=== PATIENT | male | born 1930 | race Caucasian/White ===

== ENCOUNTER 2017-05-06 02:39 | Inpatient (IN) | payer OTHER, MEDICARE ==
[2017-05-06] VITALS (7 sets, daily range): BP systolic 125–174; BP diastolic 62–88
[~2017-05-06] VITALS: Ht 167.6 cm; Wt 76.3 kg
[2017-05-06 03:13] LABS: EOSINOPHIL (%) 0.4 % (0-5); EOSINOPHIL COUNT 0.1 K/uL (0-0.3); HEMATOCRIT 33.7 % (38.0-50.0); IMMATURE GRANULOCYTE (%) 0.3 % (0.0-0.7); INSTRUMENT ABS NEUTROPHIL CT 11.3 K/uL; LYMPHOCYTE COUNT 1.8 K/uL (1.0-2.8); MCH 24.7 PG (29.0-34.0); MCHC 31.8 G/DL (30.0-36.0); MCV 77.6 FL (86-99); MEAN PLAT.VOLUME 11.5 uM^3 (9.0-12.4); MONOCYTE (%) 6.9 % (3-12); NEUTROPHIL (%) 79.7 % (45-76); NEUTROPHIL COUNT 11.3 K/uL (1.8-6.4); PLATELET COUNT 175 K/uL (156-360); RBC DIS.WIDTH-CV 17.4 % (11.8-14.6); RBC DIS.WIDTH-SD 49.3 % (39-53); RED BLOOD COUNT 4.34 M/uL (4.00-5.50); WHITE BLOOD COUNT 14.1 K/uL (4.1-10.2)
[2017-05-06 03:19] LABS: INTER. NORMALIZED RATIO 2.6; PROTHROMBIN TIME 29.2 SEC (10.2-12.9)
[2017-05-06 03:21] LABS: PTT 43.5 SEC (25-37)
[2017-05-06 03:22] LABS: CHLORIDE 96 mEq/L (99-109); POTASSIUM 3.8 mEq/L (3.7-5.4); SODIUM 134 mEq/L (136-147)
[2017-05-06 03:23] LABS: GLUCOSE 70 mg/dL (70-99)
[2017-05-06 03:25] LABS: ANION GAP 12 MEQ/L (2-14)
[2017-05-06 03:28] LABS: UREA NITROGEN (BUN) 20 mg/dL (9-23)
[2017-05-06 03:30] LABS: GFR ESTIMATE (CALCULATED) > 59 mL/min/
[2017-05-06 03:33] LABS: TROP-I INTERPRETATION NEGATIVE; TROPONIN-I 0.03 ng/mL (0.0-0.30)
[2017-05-06 03:52] LABS: ADD MIUA? YES; BILIRUBIN NEGATIVE; BLOOD SMALL; COLOR AMBER ((YELLOW)); GLUCOSE (STRIP) NEGATIVE; KETONES NEGATIVE; LEUKOCYTES MODERATE; NITRITE NEGATIVE; PROTEIN (STRIP) >=500; SPECIFIC GRAVITY 1.023 (1.000-1.030); UROBILINOGEN 0.2 MG/DL (0.2-1.0)
[2017-05-06 04:09] LABS: RED BLOOD CELLS 40-50 /HPF (0-5); WHITE BLOOD CELLS 40-50 /HPF (0-5)
[2017-05-06 04:10] LABS: BACTERIA 4+ /HPF; CRYSTALS PRESENT; EPITHELIAL CELLS 1+ /HPF; MUCUS RARE /LPF; UCUL ADDED? YES
[2017-05-06 04:13] LABS: BUDDING YEAST 2+; CALCIUM OXALATE CRYSTALS 1+ /HPF; URIC ACID CRYSTALS 2+ /HPF
[2017-05-06 08:47] LABS: POINT-OF-CARE METER ID UU14174225
[2017-05-06 12:21] LABS: POINT-OF-CARE METER ID UU14188625
[2017-05-06] MEDS ORDERED: COUMADIN6 MG PO (15:39)
[2017-05-06] MEDS ORDERED: COUMADIN3 MG PO (15:40)
[2017-05-06] MEDS ORDERED: LANTUS 10100 UNITS/ SC (15:41)
[2017-05-06] MEDS ORDERED: LISINOPRIL2.5 MG PO (15:42)
[2017-05-06] MEDS ORDERED: DIGOXIN125 MCG PO (15:42)
[2017-05-06] MEDS ORDERED: CELEXA20 MG PO (15:43)
[2017-05-06] MEDS ORDERED: OMEPRAZOLE20 MG PO (15:43)
[2017-05-06] MEDS ORDERED: METFORMIN HCL500 MG PO (15:44)
[2017-05-06] MEDS ORDERED: COREG6.25 M1 PO (15:44)
[2017-05-06] MEDS ORDERED: PRAVASTATIN SOD40 MG PO (15:45)
[2017-05-06] MEDS ORDERED: FLOMAX0.4 MG PO (15:45)
[2017-05-06] MEDS ORDERED: CHEWABLE-VITE1 EACH PO (15:46)
[2017-05-06] MEDS ORDERED: VITAMIN B-12 51 EACH SL (15:46)
[2017-05-06] MEDS ORDERED: OXYCONTIN20 MG PO (15:47)
[2017-05-06] MEDS ORDERED: SENNA-DOCUSATE1 EAC1 PO (15:48)
[2017-05-06] MEDS ORDERED: CARBIDOPA/LEVO1 EACH PO (15:50)
[2017-05-06 17:36] LABS: POINT-OF-CARE METER ID UU14174225
[2017-05-06 21:24] LABS: POINT-OF-CARE METER ID UU14188625
[2017-05-07 04:23] VITALS: BP 145/72
[2017-05-07 07:07] LABS: INTER. NORMALIZED RATIO 2.9; PROTHROMBIN TIME 33.3 SEC (10.2-12.9)
[2017-05-07 07:09] LABS: HEMATOCRIT 30.1 % (38.0-50.0); MCH 24.5 PG (29.0-34.0); MCHC 31.6 G/DL (30.0-36.0); MCV 77.6 FL (86-99); MEAN PLAT.VOLUME 11.6 uM^3 (9.0-12.4); PLATELET COUNT 135 K/uL (156-360); RBC DIS.WIDTH-CV 17.2 % (11.8-14.6); RBC DIS.WIDTH-SD 48.9 % (39-53); RED BLOOD COUNT 3.88 M/uL (4.00-5.50); WHITE BLOOD COUNT 8.4 K/uL (4.1-10.2)
[2017-05-07 07:25] LABS: ANION GAP 9 MEQ/L (2-14); CHLORIDE 97 MEQ/L (99-109); GFR ESTIMATE (CALCULATED) > 59 mL/min/; POTASSIUM 3.5 MEQ/L (3.7-5.4); SAMPLE HEMOLYSIS CHECK 0; SAMPLE ICTERIC CHECK 0; SAMPLE LIPEMIA CHECK 0; SODIUM 132 MEQ/L (136-147); UREA NITROGEN (BUN) 12 mg/dL (9-23)
[2017-05-07 07:26] LABS: GLUCOSE 167 mg/dL (70-99)
[2017-05-07 08:24] VITALS: BP 150/81
[2017-05-07 10:13] LABS: POINT-OF-CARE METER ID UU13113717
[2017-05-07 12:13] LABS: POINT-OF-CARE METER ID UU14188625
[2017-05-07 13:32] VITALS: BP 138/78
[2017-05-07 16:46] LABS: POINT-OF-CARE METER ID UU14188625
[2017-05-07 19:19] VITALS: BP 157/87
[2017-05-07 21:59] LABS: POINT-OF-CARE METER ID UU14188625; POINT-OF-CARE USER ID 603211116
[2017-05-08 03:55] VITALS: BP 140/85
[2017-05-08 06:15] LABS: HEMATOCRIT 31.3 % (38.0-50.0); MCH 24.9 PG (29.0-34.0); MCHC 31.9 G/DL (30.0-36.0); MCV 77.9 FL (86-99); MEAN PLAT.VOLUME 11.7 uM^3 (9.0-12.4); PLATELET COUNT 155 K/uL (156-360); RBC DIS.WIDTH-CV 17.2 % (11.8-14.6); RBC DIS.WIDTH-SD 48.7 % (39-53); RED BLOOD COUNT 4.02 M/uL (4.00-5.50); WHITE BLOOD COUNT 7.4 K/uL (4.1-10.2)
[2017-05-08 06:23] LABS: PROTHROMBIN TIME 46.1 SEC (10.2-12.9)
[2017-05-08 06:40] LABS: ANION GAP 10 MEQ/L (2-14); CHLORIDE 98 MEQ/L (99-109); GFR ESTIMATE (CALCULATED) > 59 mL/min/; GLUCOSE 160 mg/dL (70-99); POTASSIUM 3.5 MEQ/L (3.7-5.4); SAMPLE HEMOLYSIS CHECK 0; SAMPLE ICTERIC CHECK 0; SAMPLE LIPEMIA CHECK 0; SODIUM 136 MEQ/L (136-147); UREA NITROGEN (BUN) 10 mg/dL (9-23)
[2017-05-08 07:11] LABS: POINT-OF-CARE METER ID UU13113717
[2017-05-08 07:47] VITALS: BP 155/89
[2017-05-08 12:21] LABS: POINT-OF-CARE METER ID UU13113717
[2017-05-08 16:25] VITALS: BP 136/67
[2017-05-08 16:44] LABS: POINT-OF-CARE METER ID UU14174225
[2017-05-08 19:36] VITALS: BP 127/85
[2017-05-08 20:39] LABS: POINT-OF-CARE METER ID UU14174225
[2017-05-08 23:26] VITALS: BP 178/87
[2017-05-09 00:08] VITALS: BP 167/86
[2017-05-09 04:01] VITALS: BP 153/77
[2017-05-09 06:53] LABS: INTER. NORMALIZED RATIO 3.5; PROTHROMBIN TIME 39.8 SEC (10.2-12.9)
[2017-05-09 07:48] LABS: POINT-OF-CARE METER ID UU13113717
[2017-05-09 07:56] VITALS: BP 156/93
[2017-05-09] MEDS ORDERED: LEVAQUIN250 MG PO (09:50)
[2017-05-09 11:12] VITALS: BP 138/69
[2017-05-09 11:57] LABS: POINT-OF-CARE METER ID UU13113717
== END 2017-05-09 15:19 | disposition home health service (06) | DRG 872 ==
LOC: EME → EDBD 02:39 → EME 02:39 → EDOF 04:40 → 5SOUTH 04:40 → ENRESERV 04:44 → 5SOUTH 05:41 → ENPENDDIS 05-09 → 5SOUTH 05-09 15:19
PROVIDERS: Emergency Medicine; Hospitalist; Internal Medicine
DX: A41.9 Sepsis, unspecified organism (principal); T83.511A Infection and inflammatory reaction due to indwelling urethral catheter, initial encounter; N39.0 Urinary tract infection, site not specified; G20 Parkinson's disease; E11.649 Type 2 diabetes mellitus with hypoglycemia without coma; N45.3 Epididymo-orchitis; E87.1 Hypo-osmolality and hyponatremia; N50.89 Other specified disorders of the male genital organs; N48.89 Other specified disorders of penis; I48.2 Chronic atrial fibrillation; I10 Essential (primary) hypertension; K44.9 Diaphragmatic hernia without obstruction or gangrene; J98.11 Atelectasis; N43.3 Hydrocele, unspecified; N35.9 Urethral stricture, unspecified; R31.9 Hematuria, unspecified; Z66 Do not resuscitate; Z90.49 Acquired absence of other specified parts of digestive tract; Z90.79 Acquired absence of other genital organ(s); Z79.01 Long term (current) use of anticoagulants; Z79.4 Long term (current) use of insulin; Z85.46 Personal history of malignant neoplasm of prostate
CPT/HCPCS: 70450; 71010; 76870; 80048; 81003; 82948; 83605; 84484; 85025; 85027; 85610; 85730; 87040; 87086 GA; 93005; 97530 GP; 99281; 99285; J0692; J1815; J7030; J7050; S0028